=== PATIENT | female | born 2000 | race Caucasian/White ===

== ENCOUNTER 2023-01-09 20:10 | Emergency (ER) | payer OTHER ==
[~2023-01-09] VITALS: Ht 152.4 cm; Wt 53.0 kg
[2023-01-09 20:18] VITALS: BP 117/76; O2SAT 97
[2023-01-09 21:25] LABS: CLARITY URINE CLEAR (CLEAR); COLOR URINE YELLOW (YELLOW); GLUCOSE URINE NEGATIVE (NEGATIVE); KETONES URINE NEGATIVE (NEGATIVE); LEUKOCYTE ESTERASE URINE NEGATIVE (NEGATIVE); NITRITE URINE NEGATIVE (NEGATIVE); OCCULT BLOOD URINE NEGATIVE (NEGATIVE); PH URINE 7.5 (4.5-8.0); PROTEIN URINE NEGATIVE (NEGATIVE); SPECIFIC GRAVITY URINE 1.022 (1.005-1.030)
[2023-01-09 22:12] VITALS: PULSE 87; RESP 18; TEMP 99.2
== END 2023-01-09 22:14 | disposition home or self-care (01) ==
LOC: ER 20:10
DX: S10.93XA Contusion of unspecified part of neck, initial encounter (principal); S09.90XA Unspecified injury of head, initial encounter; W18.39XA Other fall on same level, initial encounter; Y93.89 Activity, other specified; Y92.89 Other specified places as the place of occurrence of the external cause; Y99.8 Other external cause status
CPT/HCPCS: 81003; 81025; 99284